=== PATIENT | female | born 1970 | race Hispanic/Latino ===

== ENCOUNTER 2023-09-02 14:41 | Emergency (ER) | payer MEDICAID ==
[~2023-09-02] VITALS: Ht 157.5 cm; Wt 92.5 kg
[2023-09-02] VITALS (21 sets, daily range): BP systolic 77–102; BP diastolic 41–80
[2023-09-02 17:46] LABS: URINE BILIRUBIN - DIPSTICK Negative (NEGATIVE); URINE BLOOD DIPSTICK Trace-intact (NEGATIVE); URINE GLUCOSE - DIPSTICK 500 mg/dL (NEGATIVE); URINE KETONE Negative (NEGATIVE); URINE LEUK ESTERASE Trace (NEGATIVE); URINE NITRITE - DIPSTICK Negative (Negative); URINE PH 5.5 (4.5-8.0); URINE PROTEIN - DIPSTICK Negative (NEG-TRACE); URINE UROBILINOGEN - DIPSTICK 0.2 E.U./dL (0.2)
[2023-09-02 17:47] LABS: URINE COLOR Yellow
[2023-09-02 17:50] LABS: BASO% 0.7 % (0-3); EOS% 1.7 % (0-8); HEMOGLOBIN 11.3 g/dl (12.0-16.0); IMMATURE GRANULOCYTES 0.5 % (0.0-5.0); LYMPH% 25.7 % (15-41); MEAN CELL VOLUME 93.3 fL CALC (80.0-100.0); MEAN CORPUSCULAR HGB 29.3 pG CALC (26.0-32.0); MEAN CORPUSCULAR HGB CONC 31.4 g/dL CAL (32.0-36.0); MONO% 6.2 % (2-13); NEUT# 8.92 thou/uL (2.00-7.15); NEUT% 65.2 % (42-76); RED BLOOD COUNT 3.86 mill/uL (4.20-5.60); RED CELL DISTRI WIDTH 16.6 % (11.5-15.5)
[2023-09-02 18:07] LABS: ALBUMIN 4.6 g/dL (3.2-5.0); ALKALINE PHOSPHATASE 180 u/l (38-126); BILIRUBIN, TOTAL 0.3 mg/dL (0.02-1.3); BUN 39 mg/dL (7-17); BUN/CREATININE RATIO 18 (12-20 (CALC)); CARBON DIOXIDE 22 mmol/l (22-30); CHLORIDE 107 mmol/l (95-108); CREATININE 2.2 mg/dL (0.5-1.0); GFR FOR AFR.AMER. 28 ML/MIN (>=60 (CALC)); GFR OTHER RACES 23 ML/MIN (>=60 (CALC)); MAGNESIUM 2.7 mg/dL (1.6-2.3); SGOT/AST 25 u/l (14-36); SODIUM 139 mmol/l (137-146); TOTAL PROTEIN 8.4 g/dL (6.3-8.2)
[2023-09-02 18:12] LABS: ANION GAP 15 (6-22 (CALC)); POTASSIUM 5.4 mmol/l (3.5-5.1)
[2023-09-02] MEDS ORDERED: INSULIN REGULAR (HUMAN) 100 UNIT/ML INJ IV ONE (19:00)
[2023-09-02] MEDS ORDERED: DEXTROSE 10% 500 ML BAG IV ONE (19:00)
[2023-09-02] MEDS ORDERED: SODIUM CHLORIDE 0.9% 1,000 ML IV ONE ×2 (19:50→20:40)
== END 2023-09-02 22:43 | disposition home or self-care (01) ==
LOC: ED 14:41
PROVIDERS: Nurse Practitioner
DX: E87.5 Hyperkalemia (principal); I95.9 Hypotension, unspecified; R00.1 Bradycardia, unspecified; I44.0 Atrioventricular block, first degree

== ENCOUNTER 2024-02-06 13:53 | Emergency (ER) | payer SELFPAY ==
[2024-02-06] VITALS (15 sets, daily range): BP systolic 92–128; BP diastolic 45–67
[~2024-02-06] VITALS: Ht 162.6 cm; Wt 90.7 kg
[2024-02-06] MEDS ORDERED: SODIUM CHLORIDE 0.9% 1,000 ML IV ONE (15:00)
[2024-02-06] MEDS ORDERED: ONDANSETRON HCl 4 MG/2 ML SDV IV ONE (15:00)
[2024-02-06] MEDS ORDERED: MORPHINE SULFATE 4 MG/ML VIAL IV ONE (15:00)
[2024-02-06 15:32] LABS: URINE BILIRUBIN - DIPSTICK Negative (NEGATIVE); URINE BLOOD DIPSTICK Negative (NEGATIVE); URINE COLOR Yellow; URINE GLUCOSE - DIPSTICK 500 mg/dL (NEGATIVE); URINE KETONE Negative (NEGATIVE); URINE LEUK ESTERASE Negative (NEGATIVE); URINE NITRITE - DIPSTICK Negative (Negative); URINE PROTEIN - DIPSTICK Negative (NEG-TRACE); URINE UROBILINOGEN - DIPSTICK 0.2 E.U./dL (0.2)
[2024-02-06 15:58] LABS: BASO% 0.9 % (0-3); EOS% 2.7 % (0-8); HEMATOCRIT 37.8 % (37.0-47.0); HEMOGLOBIN 11.9 g/dl (12.0-16.0); IMMATURE GRANULOCYTES 0.4 % (0.0-5.0); LYMPH% 33.7 % (15-41); MEAN CORPUSCULAR HGB 26.5 pG CALC (26.0-32.0); MEAN CORPUSCULAR HGB CONC 31.5 g/dL CAL (32.0-36.0); MONO% 7.7 % (2-13); NEUT# 5.77 thou/uL (2.00-7.15); NEUT% 54.6 % (42-76); RED BLOOD COUNT 4.49 mill/uL (4.20-5.60); RED CELL DISTRI WIDTH 16.9 % (11.5-15.5)
[2024-02-06 16:00] LABS: MEAN CELL VOLUME 84.2 fL CALC (80.0-100.0)
[2024-02-06 16:08] LABS: ALBUMIN 4.2 g/dL (3.2-5.0); BILIRUBIN, TOTAL 0.4 mg/dL (0.02-1.3); TOTAL PROTEIN 8.2 g/dL (6.3-8.2)
[2024-02-06 16:09] LABS: POTASSIUM 3.8 mmol/l (3.5-5.1)
[2024-02-06] MEDS ORDERED: KETOROLAC TROMETHAMINE 30 MG/ML SDV IV ONE (18:25)
== END 2024-02-06 19:10 | disposition home or self-care (01) | DRG 392 ==
LOC: ED 13:53
PROVIDERS: Family Medicine; Nurse Practitioner
DX: R10.9 Unspecified abdominal pain (principal)
CPT/HCPCS: Q9967